=== PATIENT | male | born 1995 | race Caucasian/White ===

== ENCOUNTER 2017-10-13 22:31 | Emergency (ER) | payer SELFPAY ==
[2017-10-13 22:34] VITALS: BP 119/78; PULSE 79; RESP 14; TEMP 98.6; O2SAT 97
--- NOTE | 2017-10-13 22:55 | PD ---
HPI Chief Complaint: Cold / Flu Symptoms Time Seen by Provider: 22:51 Travel History International Travel<30 days: No Contact w/Intl Traveler<30days: No Traveled to known affect area: No History of Present Illness HPI 22-year-old white male presents to emergency department with a three-day history of subjective fever and chills, congestion, cough, sore throat and general malaise. He denies any nausea vomiting. No abdominal pain or diarrhea. No dysuria or frequency. No rashes or lesions. Symptoms are moderate. No alleviating or exacerbating factors. History Past Medical Histgory Medical History: Denies Significant Hx Tetanus Vaccination: < 5 Years Past Surgical History Surgical History: No Previous Surgery Social History Alcohol Use: No Tobacco Use: Yes Allergies-Medications (Allergen,Severity, Reaction): Coded Allergies: Penicillins (Verified Allergy, Unknown, 10/13/17) amoxicillin (Verified Allergy, Unknown, 10/13/17) Review of Systems Except as stated in HPI: all other systems reviewed are Neg Physical Exam Narrative GENERAL: Well-developed, well-nourished in no acute distress. Nontoxic appearing. HEAD: Normocephalic, atraumatic. EYES: Pupils equal round and reactive. Extraocular motions intact. No scleral icterus. No injection or drainage. ENT: TMs clear without erythema. The external auditory canals clear. Nose: clear . Posterior pharynx is mildly erythematous and moist. No tonsillar edema or exudate. Uvula midline. Airway patent. NECK: Trachea midline.Supple, nontender, moves head freely. No central bony tenderness or spasm. 2 posterior cervical lymph nodes no anterior tonsillar lymph nodes. CARDIOVASCULAR: Regular rate and rhythm without murmurs, gallops, or rubs. RESPIRATORY: Clear to auscultation. Breath sounds equal bilaterally. No wheezes , rales, or rhonchi. GASTROINTESTINAL: Abdomen soft, non-tender, nondistended. No hepato-splenomegaly , or palpable masses. No guarding. EXTREMITIES: No clubbing, cyanosis, or edema. No joint tenderness, effusion, or edema noted. BACK: Nontender without deformity or crepitance. No flank tenderness. Data Data Last Documented VS Vital Signs Date Time Temp Pulse Resp B/P (MAP) Pulse Ox O2 Delivery O2 Flow Rate FiO2 10/13/17 22:34 98.6 79 14 119/78 (92) 97 Room Air MDM Medical Screen Exam Complete: Yes Emergency Medical Condition: No Differential Diagnosis MDM: High Differential diagnoses: Pneumonia, bronchitis, URI, influenza, strep pharyngitis Narrative Course A medical screening exam was performed: At the time of evaluation the presenting medical condition was determined not to be of an emergent nature. The patient was given the option of receiving additional care, but declined. Patient was given options for additional community resources from which to obtain care. The Patient Has Been advised to seek medical attention for their presenting complaint. The patient has been advised to return to the ER at any time if an emergent condition develops. Primary Impression: Encounter for medical screening examination Condition: Stable Rahul Shaver Oct 13, 2017 22:55
== END 2017-10-13 23:01 | disposition left against medical advice (07) ==
LOC: NEPD 22:31
DX: Z13.9 Encounter for screening, unspecified (principal); Z72.0 Tobacco use; Z88.0 Allergy status to penicillin
CPT/HCPCS: 99281